=== PATIENT | male | born 1995 | race Caucasian/White ===

== ENCOUNTER 2018-11-02 16:49 | Outpatient (CLI) | END 2018-11-02 16:50 | disposition home or self-care (01) | LOC: LAB 16:49 | PROVIDERS: ATTEND Family Medicine | DX: L73.9 Follicular disorder, unspecified (principal); Z11.4 Encounter for screening for human immunodeficiency virus [HIV] | CPT/HCPCS: 36415; 80074; 86592; 87389; 87800 ==